=== PATIENT | male | born 1955 | race Caucasian/White ===

== ENCOUNTER 2017-11-21 07:09 | Day surgery (SDC) | payer OTHER ==
--- NOTE | 2017-11-21 10:39 | GI Report ---
REFERRING PHYSICIAN: Dr. Pardeep Hardwick GRINDING ROOM INSPECTOR: Mendoza Sun MD PROCEDURE MEDICATION: Propofol as per anesthesia. INDICATIONS: Patient is a 64-year-old man referred for a screening colonoscopy. He denies any change in his bowel habits or bleeding. He denies a family history of colorectal cancer. PROCEDURE PERFORMED: Colonoscopy. PROCEDURE: An Olympus video colonoscope was advanced to the rectum and slowly advanced to the cecum. The appendiceal orifice and terminal ileum were normal. On slow withdrawal, the cecum, ascending colon, and transverse colon with no obvious intraluminal lesions noted. The descending colon and sigmoid, likewise, no obvious intraluminal lesions noted on slow withdrawal. Retroflexion of the rectum was normal. Prep was good. Patient tolerated the procedure well. FINDINGS: Normal colon mucosa to the cecum. RECOMMENDATIONS: 1. Continue high-fiber diet. 2. Consider re-looking at his colon in 10 years, sooner if clinically indicated. cc: Dr. [facility]ep Hardwick [facility]ITALJermain
[2017-11-21] MEDS ORDERED: PROPOFOL 200 MG/20 ML VIAL IV ONE (12:00)
[2017-11-21] MEDS ORDERED: LACTATED RINGERS 1,000 ML IV.SOLN IV ONE (12:00)
[2017-11-21] MEDS ORDERED: 0.9 % SODIUM CHLORIDE 500 ML IV ONE (12:00)
== END 2017-11-21 07:10 ==
LOC: OPSURG 07:09
PROVIDERS: ATTEND Internal Medicine Gastroenterology
DX: Z12.11 Encounter for screening for malignant neoplasm of colon (principal)
CPT/HCPCS: J2704; J7060; J7120; 45378; S1016

== ENCOUNTER 2018-10-17 21:09 | Emergency (ER) | payer OTHER ==
[2018-10-17] MEDS ORDERED: 0.9 % SODIUM CHLORIDE 1,000 ML IV ONE (21:19)
--- NOTE | 2018-10-17 21:28 | ED Physician Documentation ---
Dizziness - HISTORIAN Historian: patient, spouse - HPI Stated Complaint: SOB and dizziness Chief Complaint: Dizziness Additional Information: Patient is a 63-year-old male that presents to the ER with c/o dizziness and shortness of breath- he had been outside working most of the day and feels that he may have over done it. He denies any chest pain, nausea or vomiting. Timing: gradual onset Duration: none Severity: mild Associated Symptoms: weakness, light headedness Decreased Ability to Stand/ Walk: weak, walks w/o assistance Usually: walks w/o assistance Worsened By: changing position - ROS CONST: none EYES/ENT: none GI/: none MS/SKIN/LYMPH: none NEURO/PSYCH: none CVS/RESP: shortness of breath - PAST HX Past History: hypertension Cardiac Disease: none Surgeries/Procedures: none Immunizations: UTD Allergies/Adverse Reactions: Allergies Allergy/AdvReac Type Severity Reaction Status Date / Time No Known Drug Allergies Allergy Verified 10/17/18 22:10 - SOCIAL HX Smoking History: non-smoker Alcohol Use: none Drug Use: none - FAMILY HX Family History: none - VITAL SIGNS Vital Signs: Vital Signs Temp Pulse Resp BP Pulse Ox 97.1 F L 93 H 18 158/87 100 10/17/18 21:18 10/17/18 21:18 10/17/18 21:18 10/17/18 21:18 10/17/18 21:18 - REVIEWED ASSESSMENTS Nursing Assessment Reviewed: Yes Vitals Reviewed: Yes Progress - Progress Progress: 22:20 Fluids infusing- patient feeling better ED Results Lab/Radiology - Orders Orders: ED Orders Category Date Time Status Continuous EKG monitoring Q30M Care 10/17/18 21:19 Active Continuous Pulse Oximetry Q30M Care 10/17/18 21:[address] IV Lock 1T Care 10/17/18 21:19 Active CBC/PLATELET/DIFF Routine Lab 10/17/18 21:19 Ordered CKMB Stat Lab 10/17/18 Ordered CMP Routine Lab 10/17/18 21:19 Ordered CREATINE KINASE Routine Lab 10/17/18 21:19 Ordered TROPONIN I Stat Lab 10/17/18 Ordered 0.9 % Sodium Chloride [Normal Saline] 1,000 ml Med 10/17/18 21:19 Active IV Q1H EKG WITH COMPARISON Stat Ther 10/17/18 21:19 Ordered Dizziness Physical Exam - Physical Exam General Appearance: mild distress EENT: eye inspection normal, ENT inspection normal, dry mucous membranes Neck: normal inspection, supple Respiratory: breath sounds nml CVS: heart sounds normal, tachycardia, other (pt states that he can feel his heart pounding) Abdomen: soft, normal bowel sounds Skin: warm/dry, pallor Neuro: nml orientation, nml speech, nml cognition, mood/affect nml Extremities: non-tender, normal range of motion Cranial: nml as tested, no evidence of acute CVA Cerebellar: nml as tested Sensorimotor: motor nml, sensation nml, weakness Discharge Clincal Impression: Dehydration, Heat exhaustion Referrals: Pardeep Hardwick MD [Primary Care Provider] - 2 Days Additional Instructions: Increase water intake/Gatorade No sun exposure for one week Follow up with PCP as needed Condition: Good Disposition: 01 HOME, SELF-CARE Decision to Admit: NO Decision Time: 22:56
[2018-10-17 22:52] VITALS: BP 134/72
[2018-10-18 06:12] LABS: BASOPHILS % 0.4 % (0.0-1.5); NEUTROPHILS # 6.8 # k/uL (1.4-7.7); eGFR (Non-African) > 60
== END 2018-10-17 22:49 | disposition home or self-care (01) ==
LOC: ED 21:09
DX: T67.5XXA Heat exhaustion, unspecified, initial encounter (principal); E86.0 Dehydration; X58.XXXA Exposure to other specified factors, initial encounter
CPT/HCPCS: 80053; 82550; 82553; 84484; 85025; 96360; 99282; 99284; J7030; S1016